=== PATIENT | male | born 1965 | race Caucasian/White ===

== ENCOUNTER 2018-02-01 10:15 | Outpatient (CLI) | payer OTHER ==
[2018-02-01] MEDS ORDERED: ISOVUE-370 76%-LOCM 1 ML ONE (12:54)
== END 2018-02-01 10:16 | disposition home or self-care (01) ==
LOC: BICCT 10:15
PROVIDERS: ATTEND Internal Medicine Critical Care Medicine
DX: R91.1 Solitary pulmonary nodule (principal); R91.8 Other nonspecific abnormal finding of lung field; K76.0 Fatty (change of) liver, not elsewhere classified; K80.20 Calculus of gallbladder without cholecystitis without obstruction
CPT/HCPCS: 71260

== ENCOUNTER 2019-03-05 10:31 | Outpatient (CLI) | payer OTHER ==
--- NOTE | 2019-03-05 11:25 | RAD ---
TWO VIEW CHEST: COMPARISON: 02/23/2015. INDICATION: Dyspnea. FINDINGS: There is no evidence of lobar consolidation, effusion, or discrete pneumothorax. The cardiac silhoue tte is stable. No significant interval change. IMPRESSION: Stable chest. POS: C
== END 2019-03-05 10:32 | disposition home or self-care (01) ==
LOC: RAD 10:31
PROVIDERS: ATTEND Internal Medicine Critical Care Medicine
DX: R06.00 Dyspnea, unspecified (principal)
CPT/HCPCS: 71046

== ENCOUNTER 2022-10-16 19:00 | Outpatient (CLI) | payer OTHER | END 2022-10-16 19:01 | disposition home or self-care (01) | LOC: SLEEPLAB 19:00 | PROVIDERS: ATTEND Internal Medicine Critical Care Medicine | DX: G47.33 Obstructive sleep apnea (adult) (pediatric) (principal); G25.89 Other specified extrapyramidal and movement disorders | CPT/HCPCS: 95811 ==

== ENCOUNTER 2023-06-05 12:30 | Outpatient (CLI) | payer OTHER | END 2023-06-05 12:31 | disposition home or self-care (01) | LOC: BICCT 12:30 | PROVIDERS: ATTEND Internal Medicine Critical Care Medicine | DX: Z12.2 Encounter for screening for malignant neoplasm of respiratory organs (principal); J44.9 Chronic obstructive pulmonary disease, unspecified; Z87.891 Personal history of nicotine dependence | CPT/HCPCS: 71271 ==